=== PATIENT | female | born 1970 | race Caucasian/White ===

== ENCOUNTER 2022-09-08 14:42 | Emergency (ER) | payer BC, SELFPAY ==
--- NOTE | 2022-09-08 14:48 | ED.GENADULT ---
HPI - General Adult General Chief complaint: Upper Respiratory Infection Stated complaint: throat irritation,sinus drainage Time Seen by Provider: 09/08/22 14:48 Source: patient Mode of arrival: ambulatory Limitations: no limitations History of Present Illness HPI narrative: 52-year-old female patient presents to the [facility] with complaints of sore throat, congestion runny nose for the past 3 days. Denies fevers, body aches or chills. Patient states she did now home COVID test this morning which was negative. Patient states she did take an [id number]-uso-voococh sinus / allergy pill which does seem to be helping her symptoms. Patient states she is here today because her work is requiring medical documentation of a negative COVID test before she can return to work. Denies any chest pain, shortness of breath or fevers. Related Data Home Medications Medication Instructions Recorded Confirmed hydrochlorothiazide 25 mg tablet 25 mg PO DAILY 09/08/22 09/08/22 Allergies Allergy/AdvReac Type Severity Reaction Status Date / Time No Known Allergies Allergy Verified 09/08/22 14:54 Review of Systems Review of Systems: CONSTITUTIONAL: Denies fever, chills, or sweats. EYES: Denies visual changes, redness, or discharge. ENT: Positive rhinorrhea, congestion, sore throat, denies otalgia. CARDIOVASCULAR: Denies chest pain, palpitations, or edema. RESPIRATORY: Denies cough or dyspnea. GASTROINTESTINAL: Denies abdominal pain, nausea, vomiting, or diarrhea. GENITOURINARY: Denies dysuria or hematuria. SKIN: Denies rash or itching. MUSCULOSKELETAL: Denies back pain, joint pain, or myalgia. NEUROLOGIC: Denies headache, numbness, or weakness. PSYCHIATRIC: Denies anxiety or depression. PMFSH Comments At the time of my signature I agree with nursing past medical history, surgical, social, and family history. There is no relevant family history pertinent to the presenting complaint. Exam Narrative: GENERAL: Well-appearing, well-nourished, and in no acute distress. HEAD: Normocephalic, atraumatic. EYES: PERRLA and EOMI. ENT: Nares with erythema and edema noted bilaterally, no rhinorrhea or epistaxis. Mucous membranes moist. posterior pharynx with no erythema, tonsillar enlargement, exudates or lesions present. Bilateral TMs are clear no erythema or foreign bodies the canal. NECK: Supple. No lymphadenopathy CHEST: Clear to auscultation. No respiratory distress. HEART: Regular rate and rhythm. No murmur heard. Normal peripheral pulses. ABDOMEN: Soft, nontender, nondistended, normal active bowel sounds. EXTREMITIES: Normal range of motion. No edema. SKIN: Warm, dry, no rash. NEURO: No focal deficits. Alert and oriented x3. Course Course Level of Care: Express Care Visit Vital Signs Vital signs: Vital Signs Temperature 36.6 C 09/08/22 14:59 Pulse Rate 80 09/08/22 14:59 Respiratory Rate 18 09/08/22 14:59 Blood Pressure 148/80 H 09/08/22 14:59 Pulse Oximetry 99 09/08/22 14:59 Oxygen Delivery Room Air 09/08/22 14:59 Temperature 36.6 C 09/08/22 14:59 Pulse Rate 80 09/08/22 14:59 Respiratory Rate 18 09/08/22 14:59 Blood Pressure 148/80 H 09/08/22 14:59 Pulse Oximetry 99 09/08/22 14:59 Oxygen Delivery Room Air 09/08/22 14:59 Vital signs reviewed The patient has been informed that they may have pre-hypertension or Hypertension based on a BP reading in the department. I recommend that the patient call the primary care provider listed on their discharge instructions or a physician of their choice this week to arrange follow up for further evaluation of possible pre-hypertension or Hypertension Medical Decision Making MDM Narrative Medical decision making narrative: patient to see if strep today. She continues to see to sinus /allergy medication also recommend increasing her vitamins C and D as well as she try some Flonase for the congestion. Patient verbalized understanding the eyes any
[2022-09-08 14:59] VITALS: BP 148/80; PULSE 80; RESP 18; TEMP 36.6; O2SAT 99
== END 2022-09-08 15:28 | disposition home or self-care (01) ==
PROVIDERS: Emergency Provider Nurse Practitioner Family; PCP Physician Assistant
DX: J30.9 Allergic rhinitis, unspecified (principal); J02.9 Acute pharyngitis, unspecified; Z20.822 Contact with and (suspected) exposure to COVID-19
CPT/HCPCS: 87081; 87426; 87880; 99203; C9803; G0463